=== PATIENT | male | born 1970 | race Caucasian/White ===

== ENCOUNTER 2016-10-23 17:39 | Emergency (ER) | payer MEDICAID ==
[~2016-10-23] VITALS: Ht 162.6 cm; Wt 74.4 kg
[~2016-10-23 17:39] MED LIST: KEPPRA500 MG PO; ORETIC25 MG PO
[2016-10-23 17:49] VITALS: BP 137/99
--- NOTE | 2016-10-23 18:30 | NUR ---
46/M PRESENT TO ED C/O LEFT ANKLE PAIN x TWO WEEKS. PT STATES HE WAS CLIMBING DOWN THE LADDER AND SLIPPED AND TWISTED LEFT ANKLE.LEFT ANKLE IS SWOLLEN;PAIN SCALE OF 8/10.PT DENIES ANY MEDICAL HX.DENIES CP/SOB/N/V/F.AAOX4;NO ACUTE DISTRESS NOTED AT THIS TIME;HOB ELEVATED;NEEDS ATTENDED;SAFETY PREACUTION INTITUTED;DR GILL AT BEDSIDE
[2016-10-23] MEDS ORDERED: KETOROLAC 60 MG/2 ML VIAL IM ONE (18:40)
--- NOTE | 2016-10-23 18:45 | NUR ---
DR GILL AT BEDSIDE
--- NOTE | 2016-10-23 19:02 | NUR ---
PT LYING ON BED COMFORTABLY;NO ACUTE DISTRESS NOTED AT THIS TIME;WILL CONTINUE TO MONITOR PT.
[2016-10-23 19:12] VITALS: BP 142/92
--- NOTE | 2016-10-23 19:12 | NUR ---
Patient discharged with v/s stable. Written and verbal after care instructions given and explained. Patient alert, oriented and verbalized understanding of instructions. Ambulatory with steady gait. All questions addressed prior to discharge. ID band removed. Patient advised to follow up with PMD. Rx of MOTRIN AND TRAMADOL given. Patient educated on indication of medication including possible reaction and side effects. Opportunity to ask questions provided and answered.
== END 2016-10-23 19:12 | disposition home or self-care (01) ==
LOC: MED 17:39
DX: S82.832A Other fracture of upper and lower end of left fibula, initial encounter for closed fracture (principal); W17.89XA Other fall from one level to another, initial encounter; Y93.89 Activity, other specified; Y92.89 Other specified places as the place of occurrence of the external cause; Y99.8 Other external cause status
CPT/HCPCS: 29515; 73610; 96372; 99284; J1885